=== PATIENT | female | born 2000 | race Two or more races ===

== ENCOUNTER 2023-02-09 14:02 | Emergency (ER) | payer OTHER ==
[2023-02-09 14:16] VITALS: BP 119/75; O2SAT 97
--- NOTE | 2023-02-09 15:12 | ED Physician Documentation ---
PD HPI LOWER EXT INJURY - Stated complaint Stated Complaint: RT ANKLE SWELLING - Chief complaint Chief Complaint: Ext Problem - History obtained from History obtained from: Patient - Additional information Additional information: Patient is a 22-year-old female presenting for evaluation of right ankle pain. Patient states that she tripped over a step at her friend's house and rolled her ankle. She did not hit her head or have LOC. She has noticed increased pain and swelling this morning. Denies prior fracture to the site but has had a prior ankle sprain to the right ankle.Does not take a blood thinner. Review of Systems Constitutional: denies: Fever Cardiac: denies: Chest pain / pressure Respiratory: denies: Dyspnea Musculoskeletal: reports: Joint pain Neurologic: denies: Headache PD PAST MEDICAL HISTORY - Past Medical History Past Medical History: Yes Psych: Anxiety - Past Surgical History Past Surgical History: No - Allergies Allergies/Adverse Reactions: Allergies Allergy/AdvReac Type Severity Reaction Status Date / Time No Known Drug Allergies Allergy Verified 02/09/23 14:13 - Social History Does the pt smoke?: No Smoking Status: Never smoker PD ED PE NORMAL - General General: Alert and oriented X 3, No acute distress, Well developed/nourished - HEENT HEENT: Atraumatic - Neck Neck: Supple, no meningeal sign - Cardiac Cardiac: Strong equal pulses - Derm Derm: Warm and dry - Extremities Extremities: Other (Tenderness and swelling to right lateral malleolus, pedal pulses intact, no tenderness to the foot, no proximal tenderness, compartments of extremity are soft, motor and sensation are grossly intact) Results - Vitals Vitals: Vital Signs - 24 hr 02/09/23 14:08 Temperature 37.3 C Heart Rate 76 Respiratory 20 Rate Blood Pressure 119/75 O2 Saturation 97 PD Medical Decision Making - ED course Complexity details: reviewed results ED course: Patient is a 22-year-old female presenting for evaluation of right ankle injury. No injuries noted elsewhere. X-ray was obtained which I reviewed and I see no fracture or dislocation. Patient was given an ankle Aircast and crutches. She is instructed on continued supportive care as well as concerning symptoms to return for. [facility] also [facility] Departure - Departure Disposition: 01 Home, Self Care Clinical Impression: Right ankle sprain Condition: Stable Instructions: ED Sprain Ankle Follow-Up: [facility] [Provider Group] Comments: I do not see signs of a fracture or dislocation on your ankle x-ray. The radiology report is pending but I will notify you if there are any discrepancies. In the meanwhile we have placed an ankle splint and given you crutches. Please continue with these until you are seen for follow-up. Please continue with ice, elevation, anti-inflammatory such as ibuprofen or acetaminophen. [facility] Forms: PCP List, Activity restrictions Discharge Date/Time: 02/09/23 15:19
--- NOTE | 2023-02-09 15:29 | XRAY Report ---
PROCEDURE: Ankle 3 View RT INDICATIONS: rolled ankle/pain TECHNIQUE: 3 views of the ankle were acquired. COMPARISON: None. FINDINGS: Bones: No fractures or dislocations. Ankle mortise is normally aligned. No suspicious bony lesions . Soft tissues: No tibiotalar joint effusion. Achilles tendon appears normal. Soft tissue swelling. IMPRESSION: No acute bony abnormality. Tissue swelling. If clinical symptoms persist, consider a follow-up exam i n 7-10 days or advanced imaging such as CT or MRI. Reviewed by: Dm Shah MD on 02/09/2023 3:28 PM PDT Approved by: Dm Shah MD on 02/09/2023 3:28 PM PDT Station ID: [id number]
== END 2023-02-09 15:19 | disposition home or self-care (01) ==
LOC: ED 14:02
DX: S93.401A Sprain of unspecified ligament of right ankle, initial encounter (principal); W01.0XXA Fall on same level from slipping, tripping and stumbling without subsequent striking against object, initial encounter
CPT/HCPCS: 99283